=== PATIENT | female | born 1990 | race Caucasian/White ===

== ENCOUNTER 2020-03-01 14:38 | Emergency (ER) | payer MEDICAID ==
[~2020-03-01] VITALS: Ht 160 cm; Wt 72.6 kg
[~2020-03-01 14:38] MED LIST: CARAFATE1 G1 PO; IBU800 MG PO; IBUPROFEN; MACROBID100 M1 PO; SUNMARK OMEPRAZ20 M1 PO; TYLENOL; VOLTAREN50 M1 PO; ZOFRAN4 MG PO
[2020-03-01] MEDS ORDERED: CYCLOBENZAPRINE10 MG PO (19:03)
== END 2020-03-01 19:14 | disposition home or self-care (01) ==
LOC: ED 14:38
DX: S16.1XXA Strain of muscle, fascia and tendon at neck level, initial encounter (principal); F17.200 Nicotine dependence, unspecified, uncomplicated; W18.39XA Other fall on same level, initial encounter; Y93.89 Activity, other specified; Y92.89 Other specified places as the place of occurrence of the external cause; Y99.8 Other external cause status

== ENCOUNTER 2022-03-07 21:05 | Emergency (ER) | payer MEDICAID ==
[~2022-03-07] VITALS: Ht 162.5 cm; Wt 91.6 kg
[~2022-03-07 21:05] MED LIST changes: +CYCLOBENZAPRINE10 MG PO
[2022-03-07 21:54] LABS: BILIRUBIN Negative (Negative); BLOOD Negative (Negative); COLOR Yellow (Yellow); GLUCOSE Negative (Negative); KETONE Negative (Negative); LEUKO ESTERASE Negative (Negative); NITRITE Negative (Negative); PH 6.5 (4.5-8.0); SPECIFIC GRAVITY <= 1.005 (1.001-1.030); UROBILINOGEN 0.2 E.U./dl (0.0-1.0)
[2022-03-07 21:58] LABS: CLARITY Clear (Clear)
[2022-03-07 22:01] LABS: RBC 0-2 rbc/hpf (0-2)
[2022-03-07 22:48] LABS: BASO # 0.1 10*3/uL (0.0-0.1); BASO % 0.6 % (0.0-1.0); EOS # 0.2 10*3/uL (0.0-0.4); EOS % 1.6 % (1.0-4.0); HEMATOCRIT 46.7 % (37.0-47.0); LYMPH % 39.7 % (27.0-41.0); MEAN CELL VOLUME 94.7 fl (81.0-99.0); MEAN CORPUSCULAR HGB CONC 33.8 g/dl (33.0-37.0); MEAN PLATELET VOLUME 10.8 fl (9.6-12.3); MONO # 0.5 10*3/uL (0.1-1.0); MONO % 5.3 % (3.0-9.0); NEUT # 5.3 10*3/uL (2.3-7.9); NEUT % 52.6 % (47.0-73.0); PLATELET COUNT AUTOMATED 244 10*3/uL (130-400); RED BLOOD COUNT 4.93 10*6/uL (4.10-5.10); RED CELL DISTRI WIDTH 12.5 % (0-14.5); WHITE BLOOD COUNT 10.1 10*3/uL (4.8-10.8)
[2022-03-07 23:04] LABS: ALKALINE PHOSPHATASE 86 U/L (45-117); BUN 5 mg/dl (7-24); CHLORIDE 113 mmol/L (98-107); CREATININE 0.63 mg/dL (0.55-1.02); LIPASE 136 U/L (73-393); POTASSIUM 3.7 mmol/L (3.5-5.1); SGOT/AST 14 IU/L (3-35); SGPT/ALT 37 U/L (12-78); SODIUM 141 mmol/L (136-145); TOTAL PROTEIN 6.6 gm/dL (6.4-8.2)
[2022-03-08] MEDS ORDERED: CYCLOBENZAPRINE10 MG PO (01:22)
[2022-03-08] MEDS ORDERED: HYDROCODONE-AC1 EAC1 PO (01:22)
== END 2022-03-08 01:26 | disposition home or self-care (01) ==
LOC: ED 21:05
PROVIDERS: Physician Assistant
DX: R10.31 Right lower quadrant pain (principal); R11.0 Nausea; M54.50 Low back pain, unspecified; Z98.51 Tubal ligation status; Z90.49 Acquired absence of other specified parts of digestive tract